=== PATIENT | female | born 1965 | race African-American/Black ===

== ENCOUNTER → 2023-08-06 | Emergency (ER) | payer OTHER ==
[~2023-08-06] MED LIST: AMLODIPINE 10 MG TAB ONE; NA CHLORIDE 0.9% 500 ML ONE; ONDANSETRON 4 MG/2 ML VIAL ONE; POTASSIUM 25 MEQ EFFERV TAB ONE
[2023-08-06 09:36] LABS: Hematocrit 39.3 % (36.0-45.0); Lymphocytes % 37.7 % (15.3-44.8); MCV 80.9 fL (80-100); MPV 8.1 fL (7.6-11.3); Platelets 227 thou/uL (152-406); RBC Red Blood Cell Count 4.86 M/uL (3.86-4.86)
[2023-08-06 09:57] LABS: Albumin 3.3 g/dL (3.4-5.0); Bilirubin Total 0.4 mg/dL (0.2-1.0); Potassium 3.3 mEq/L (3.5-5.1); Protein, Total 7.5 g/dL (6.4-8.2); Troponin High Sensitivity 6.5 pg/mL (<58.9)
--- NOTE | 2023-08-06 10:29 | RAD REPORT ---
EXAM DESCRIPTION: Rick Single View08/06/2023 9:48 am CLINICAL HISTORY: Cough COMPARISON: none FINDINGS: The lungs appear clear of acute infiltrate. The heart is normal size IMPRESSION: No acute abnormalities displayed
[2023-08-06 10:36] LABS: Specific Gravity 1.012 (1.005-1.030); Urine Bacteria None Seen /HPF (<20); Urine Bilirubin NEGATIVE (Negative); Urine Blood Negative (Negative); Urine Clarity Clear (Clear); Urine Color Colorless (Yellow); Urine Glucose NEGATIVE (Negative); Urine Protein NEGATIVE (Negative); Urine RBC <5 /HPF (None Seen); Urine Urobilinogen Normal (Normal)
--- NOTE | 2023-08-06 11:57 | ER ---
Nurse's Notes [facility] Name: Vanessa Reece Age: 58 yrs Sex: Female : 1965 Arrival Date: 08/06/2023 Time: 08:44 Bed 5 Private MD: Diagnosis: Dizziness and giddiness;Essential (primary) hypertension;Hypokalemia Presentation: 08/06 08:56 Chief complaint: Patient states: Nausea and not feeling well started today. BP at work ll1 was 190/110's so she came to get checked. No LEDEZMA or CP. Coronavirus screen: Client denies travel out of the [place] in the last 14 days. At this time, the client does not indicate any symptoms associated with coronavirus-19. Ebola Screen: Patient denies travel to an Ebola-affected area in the 21 days before illness onset. Initial Sepsis Screen: Does the patient meet any 2 criteria? No. Patient's initial sepsis screen is negative. Does the patient have a suspected source of infection? No. Patient's initial sepsis screen is negative. Risk Assessment: Do you want to hurt yourself or someone else? Patient reports no desire to harm self or others. Onset of symptoms was August 06, 2023. 08:56 Method Of Arrival: Ambulatory ll1 08:56 Acuity: LISANDRO 2 ll1 Historical: - Allergies: 08:55 Aspirin; ll1 - PMHx: 08:58 Hypertensive disorder; no meds now; TIA; ll1 - Immunization history:: Adult Immunizations up to date. - Social history:: Smoking status: Patient denies any tobacco usage or history of. Screenin:44 [facility] ED Fall Risk Assessment (Adult) Score/Fall Risk Level 0 - 2 = Low Risk nj1 Oriented to surroundings, Maintained a safe environment, Hourly rounding (assess needs \T\ fall precautionary measures) done. Abuse screen: Denies threats or abuse. Denies injuries from another. Nutritional screening: No deficits noted. Tuberculosis screening: No symptoms or risk factors identified. Assessment: 09:25 General: Appears in no apparent distress. comfortable, Behavior is calm, cooperative, nj1 appropriate for age. Pain: Denies pain. Neuro: Level of Consciousness is awake, alert, obeys commands, Oriented to person, place, time, situation. 09:25 Cardiovascular: Denies chest pain, Patient's skin is warm and dry. Respiratory: Airway nj1 is patent Respiratory effort is even, unlabored. GI: Reports nausea. 10:21 Reassessment: Patient appears in no apparent distress at this time. Patient and/or nj1 family updated on plan of care and expected duration. Pain level reassessed. Patient is alert, oriented x 3, equal unlabored respirations, skin warm/dry/pink. 12:18 Reassessment: Patient appears in no apparent distress at this time. Patient and/or nj1 family updated on plan of care and expected duration. Pain level reassessed. Patient is alert, oriented x 3, equal unlabored respirations, skin warm/dry/pink. GI: Patient currently denies nausea. Vital Signs: 08:56 BP 196 / 108; Pulse 68; Resp 16; Temp 97.7; Pulse Ox 98% on R/A; Weight 99.79 kg; ll1 Height 5 ft. 9 in. ; Pain 0/10; 09:30 BP 184 / 105; Pulse 64; Resp 18; Pulse Ox 98% on R/A; Pain 0/10; nj1 10:19 BP 168 / 98; Pulse 62; Resp 18; Pulse Ox 98% ; Pain 0/10; nj1 12:17 BP 158 / 95; Pulse 67; Resp 17; Pulse Ox 97% on R/A; nj1 08:56 Body Mass Index 32.49 (99.79 kg, 175.26 cm) ll1 08:56 Pain Scale: Adult ll1 09:30 Pain Scale: Adult nj1 10:19 Pain Scale: Adult nj1 ED Course: 08:50 Patient arrived in ED. gm2 08:52 Arm band placed on. ll1 08:58 Triage completed. ll1 08:58 Oskar Quezada MD is Attending Physician. maurice 09:04 Tasneem Cantor RN is Primary Nurse. nj1 09:25 Inserted saline lock: 22 gauge in right antecubital area, using aseptic technique. nj1 Blood collected. 09:44 Patient has correct armband on for positive identification. Bed in low position. Call nj1 light in reach. Provided Education on: call light, fall precautions. 09:50 Chest Single View In Process Unspecified. EDMS 11:56 Gus Novoa MD is Referral Physician. maurice 12:29 No provider procedures requiring assistance completed. IV discontinued, intact, nj1 bleeding controlled. Administered Medications: 09:25 Drug: NS 0.9% IV 500 ml IV at bolus once Route: IV; Rate: bolus; Site: right nj1 antecubital; 10:00 Follow up: Response: No adverse reaction; IV Status: Completed infusion; IV Intake: nj1 500ml 09:31 Drug: Ondansetron IVP 4 mg IVP once; over 2 minutes Route: IVP; Site: right antecubital;[facility] 10:00 Follow up: Response: No adverse reaction; Nausea is decreased nj1 12:11 Drug: Potassium PO Effervescent Tablet 25 mEq PO once; dissolve in 4 ounces of water or [facility] juice Route: PO; 12:11 Drug: Norvasc PO 10 mg PO once Route: PO; az1 Medication: 12:30 VIS not applicable for this client. nj1 Intake: 10:00 IV: 500ml; Total: 500ml. [facility] Outcome: 11:57 Discharge ordered by . maurice 12:29 Discharged to home ambulatory, [facility] 12:29 Condition: stable 12:29 Discharge instructions given to patient, Instructed on discharge instructions, follow up and referral plans. medication usage, Demonstrated understanding of instructions, follow-up care, medications, Prescriptions given X 3, 12:30 Patient left the ED. [facility] Signatures: Dispatcher [employer] EDMS Oskar Quezada MD MD cha Lewis, Lynsay, RN RN 1 Tasneem Cantor RN RN gen1 Ana Parikh gm2 Corrections: (The following items were deleted from the chart) 08:58 08:55 PMHx: Hypertensive disorder; no meds; ll1 1 09:43 09:31 NS 0.9% IV 500 ml IV at bolus in right antecubital nj nj
--- NOTE | 2023-08-06 11:57 | EDPHYS ---
Physician Documentation [facility] Name: Vanessa Reece Age: 58 yrs Sex: Female : 1965 Arrival Date: 08/06/2023 Time: 08:44 Bed 5 Private MD: ED Physician Oskar Quezada HPI: 08/06 11:53 This 58 yrs old Black Female presents to ER via Ambulatory with complaints of High maurice Blood Pressure. 11:53 The patient has elevated blood pressure and discovered this at home. Onset: The maurice symptoms/episode began/occurred just prior to arrival. Modifying factors: The symptoms are aggravated by activity, The symptoms are alleviated by remaining still. Associated signs and symptoms: Pertinent positives: dizziness, lightheadedness. Severity of symptoms: At its worst the blood pressure was moderate, in the emergency department the blood pressure is improved, mildly. The patient has experienced similar episodes in the past, several times. Historical: - Allergies: 08:55 Aspirin; ll1 - PMHx: 08:58 Hypertensive disorder; no meds now; TIA; ll1 - Immunization history:: Adult Immunizations up to date. - Social history:: Smoking status: Patient denies any tobacco usage or history of. ROS: 11:54 Constitutional: Negative for fever, chills, and weight loss, Eyes: Negative for injury, maurice pain, redness, and discharge, ENT: Negative for injury, pain, and discharge, Neck: Negative for injury, pain, and swelling, Cardiovascular: Negative for chest pain, palpitations, and edema, Respiratory: Negative for shortness of breath, cough, wheezing, and pleuritic chest pain, Abdomen/GI: Negative for abdominal pain, nausea, vomiting, diarrhea, and constipation, Back: Negative for injury and pain, : Negative for injury, bleeding, discharge, and swelling, MS/Extremity: Negative for injury and deformity, Skin: Negative for injury, rash, and discoloration, Psych: Negative for depression, anxiety, suicide ideation, homicidal ideation, and hallucinations, Allergy/Immunology: Negative for hives, rash, and allergies, Endocrine: Negative for neck swelling, polydipsia, polyuria, polyphagia, and marked weight changes, Hematologic/Lymphatic: Negative for swollen nodes, abnormal bleeding, and unusual bruising, 11:54 Neuro: Positive for dizziness, weakness, Exam: 11:54 Constitutional: This is a well developed, well nourished patient who is awake, alert, maurice and in no acute distress. Head/Face: Normocephalic, atraumatic. Eyes: Pupils equal round and reactive to light, extra-ocular motions intact. Lids and lashes normal. Conjunctiva and sclera are non-icteric and not injected. Cornea within normal limits. Periorbital areas with no swelling, redness, or edema. ENT: Nares patent. No nasal discharge, no septal abnormalities noted. Tympanic membranes are normal and external auditory canals are clear. Oropharynx with no redness, swelling, or masses, exudates, or evidence of obstruction, uvula midline. Mucous membranes moist. Neck: Trachea midline, no thyromegaly or masses palpated, and no cervical lymphadenopathy. Supple, full range of motion without nuchal rigidity, or vertebral point tenderness. No Meningismus. Chest/axilla: Normal chest wall appearance and motion. Nontender with no deformity. No lesions are appreciated. Cardiovascular: Regular rate and rhythm with a normal S1 and S2. No gallops, murmurs, or rubs. Normal PMI, no JVD. No pulse deficits. Respiratory: Lungs have equal breath sounds bilaterally, clear to auscultation and percussion. No rales, rhonchi or wheezes noted. No increased work of breathing, no retractions or nasal flaring. Abdomen/GI: Soft, non-tender, with normal bowel sounds. No distension or tympany. No guarding or rebound. No evidence of tenderness throughout. Back: No spinal tenderness. No costovertebral tenderness. Full range of motion. Female : Normal external genitalia. Skin: Warm, dry with normal turgor. Normal color with no rashes, no lesions, and no evidence of cellulitis. MS/ Extremity: Pulses equal, no cyanosis. Neurovascular intact. Full, normal range of motion. Neuro: Awake and alert, GCS 15, oriented to person, place, time, and situation. Cranial nerves II-XII grossly intact. Motor strength 5/5 in all extremities. Sensory grossly intact. Cerebellar exam normal. Normal gait. Psych: Awake, alert, with orientation to person, place and time. Behavior, mood, and affect are within normal limits. 11:54 ECG was reviewed by the Attending Physician. 11:54 Musculoskeletal/extremity: DVT Exam: No signs of deep vein thrombosis. no pain, no swelling, no tenderness, negative Homans' sign noted on exam, no appreciated bluish discoloration, no erythema, no increased warmth, Vital Signs: 08:56 BP 196 / 108; Pulse 68; Resp 16; Temp 97.7; Pulse Ox 98% on R/A; Weight 99.79 kg; ll1 Height 5 ft. 9 in. ; Pain 0/10; 09:30 BP 184 / 105; Pulse 64; Resp 18; Pulse Ox 98% on R/A; Pain 0/10; nj1 10:19 BP 168 / 98; Pulse 62; Resp 18; Pulse Ox 98% ; Pain 0/10; nj1 12:17 BP 158 / 95; Pulse 67; Resp 17; Pulse Ox 97% on R/A; nj1 08:56 Body Mass Index 32.49 (99.79 kg, 175.26 cm) ll1 08:56 Pain Scale: Adult ll1 09:30 Pain Scale: Adult nj1 10:19 Pain Scale: Adult nj1 MDM: 08:59 Patient medically screened. maurice 11:57 Differential diagnosis: hypertensive crisis, Malignant HTN, CVA. Data reviewed: vital maurice signs, nurses notes, lab test result(s), EKG, radiologic studies, plain films. Consideration of Admission/Observation Escalation of care including admission/observation considered. I considered the following discharge prescriptions or medication management in the emergency department Medications were administered in the Emergency Department. See MAR. Independent interpretation of the following test(s) in the Emergency Department EKG: See my EKG interpretation above. Test considered but Not performed: CT: NO CT BRAIN. Historians other than the Patient: Spouse/Significant Other: WELL INFORMED. Care significantly affected by the following chronic conditions: Hypertension, Obesity. Counseling: I had a detailed discussion with the patient and/or guardian regarding the historical points, exam findings, and any diagnostic results supporting the discharge/admit diagnosis, lab results, radiology results. 08/06 08:59 Order name: CBC with Diff; Complete Time: 11:47 [facility] 08/06 08:59 Order name: Comprehensive Metabolic Panel; Complete Time: 11:47 [facility] 08/06 08:59 Order name: Troponin HS; Complete Time: 11:47 [facility] 08/06 08:59 Order name: Urinalysis W/Microscopic; Complete Time: 11:47 [facility] 08/06 08:59 Order name: BNP; Complete Time: 11:47 maurice 08/06 09:15 Order name: Chest Single View; Complete Time: 11:47 EDMS 08/06 08:59 Order name: EKG; Complete Time: 09:00 maurice 08/06 08:59 Order name: EKG - Nurse/Tech; Complete Time: 09:41 maurice 08/06 12:04 Order name: PO challenge: JUICE; Complete Time: 12:17 maurice EC:54 Rate is 64 beats/min. Rhythm is regular. QRS [place] is Normal. VA interval is normal. QRS maurice interval is normal. QT interval is normal. No Q waves. T waves are Normal. T waves are Inverted in leads II, aVF, V1, V2, V3, V4, V5. No ST changes noted. Clinical impression: NSR w/ Non-specific ST/T Changes and No evidence of ischemia. Interpreted by me. Reviewed by me. Administered Medications: 09:25 Drug: NS 0.9% IV 500 ml IV at bolus once Route: IV; Rate: bolus; Site: right [facility] antecubital; 10:00 Follow up: Response: No adverse reaction; IV Status: Completed infusion; IV Intake: nj1 500ml 09:31 Drug: Ondansetron IVP 4 mg IVP once; over 2 minutes Route: IVP; Site: right antecubital;[facility] 10:00 Follow up: Response: No adverse reaction; Nausea is decreased [facility] 12:11 Drug: Potassium PO Effervescent Tablet 25 mEq PO once; dissolve in 4 ounces of water or nj1 juice Route: PO; 12:11 Drug: Norvasc PO 10 mg PO once Route: PO; nj1 Disposition Summary: 08/06/23 11:57 Discharge Ordered Notes: Location: Home maurice Problem: new maurice Symptoms: have improved maurice Condition: Stable maurice Diagnosis - Dizziness and giddiness maurice - Essential (primary) hypertension maurice - Hypokalemia maurice Followup: maurice - With: Private Physician - When: 2 - 3 days - Reason: Recheck today's complaints, Continuance of care, Re-evaluation by your physician Followup: maurice - With: Gus Novoa MD - When: 2 - 3 days - Reason: Recheck today's complaints, Re-evaluation by your physician Discharge Instructions: - Discharge Summary Sheet maurice - Potassium Content of Foods maurice - Dizziness maurice - Hypertension, Adult maurice - Hypertension, Adult, [id number] maurice - How to Take Your Blood Pressure, Cohy-da-Tobk maurice - Hypokalemia maurice - Dizziness, [id number] maurice - Managing Your Hypertension maurice Forms: - Medication Reconciliation Form maurice - Thank You Letter maurice - Antibiotic Education maurice - Prescription Opioid Use maurice - Patient Portal Instructions maurice - Leadership Thank You Letter maurice - Work release form nj1 Prescriptions: - Norvasc 5 mg Oral tablet - take 1 tablet ORAL route once daily; 30 tablet; Refills: 0, Product Selection maurice Permitted - Potassium Chloride 20 meq Oral Packet - take 1 packet ORAL route once daily 1 packet in 6 (six) ounces of water or maurice juice; Take after meal; 30 packet; Refills: 0, Product Selection Permitted - Hydrochlorothiazide 12.5 mg Oral Tablet - take 1 tablet ORAL route once daily; 30 tablet; Refills: 0, Product Selection maurice Permitted Signatures: Dispatcher [employer] Oskar Abraham MD MD cha Lewis, Lynsay, RN RN ll1 Tasneem Cantor RN RN nj1 Corrections: (The following items were deleted from the chart) 08:58 08:55 PMHx: Hypertensive disorder; no meds; 1 [facility] 09:15 09:00 Chest Pa And Lat (2 Views)+[email or web address] ordered. EDHI EDMS
[2023-08-06 12:59] VITALS: BP 158/95; TEMP 97.7; O2SAT 97
--- NOTE | 2023-08-07 16:30 | EKG ---
Test Date: 2023-08-06 Test Time: 09:35:16 Direct Support Staff Member: VIMAL MEASUREMENT RESULTS: Intervals: Rate: 64 NM: 166 QRSD: 88 QT: 442 QTc: 455 [place]: P: 49 NM: 166 QRS: 34 T: -25 INTERPRETIVE STATEMENTS: Normal sinus rhythm Nonspecific T wave abnormality Abnormal ECG No previous ECG available for comparison Electronically Signed On 08-07-23 16:26:21 EMBOSSING TOOLSETTER by Gus Novoa
== END ==
LOC: ER 08:44
DX: I10 Essential (primary) hypertension (principal); E87.6 Hypokalemia; Z88.6 Allergy status to analgesic agent
CPT/HCPCS: 96361; 93005; 85025; 81001; 36415; 84484; 80053; 83880; 71045; 96374; 99284; J2405; J7040

== ENCOUNTER 2023-12-10 14:16 | Emergency (ER) | payer OTHER ==
--- NOTE | 2023-12-10 15:24 | EDPHYS ---
Physician Documentation [facility] Name: Vanessa Reece Age: 58 yrs Sex: Female : 1965 Arrival Date: 12/10/2023 Time: 14:16 Bed DX3 Private MD: ED Physician Asim Kang HPI: 12/09 15:20 This 58 yrs old Black Female presents to ER via Ambulatory with complaints of Leg Pain. rn 15:20 The patient presents with pain. The complaints affect the left knee. rn 15:20 Onset: The symptoms/episode began/occurred 3 day(s) ago. Modifying factors: The rn symptoms are alleviated by nothing. the symptoms are aggravated by movement. Severity of symptoms: At their worst the symptoms were mild, in the emergency department the symptoms are unchanged. The patient has not experienced similar symptoms in the past. 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 Is able to ambulate and is still going to work. Has tried elevation and rest as best as she can with still hurts. No fever or chills. No direct trauma. No open wounds.. Historical: - Allergies: 14:42 Aspirin; db - PMHx: 14:42 Hypertensive disorder; no meds now; TIA; db - Immunization history:: Adult Immunizations unknown. - Infectious Disease History:: Denies. - Social history:: Smoking status: Patient denies any tobacco usage or history of. - Family history:: not pertinent. - Hospitalizations: : No recent hospitalization is reported. ROS: 15:20 Constitutional: Negative for fever, chills, and weight loss, MS/Extremity: Positive for rn left leg pain Exam: 15:20 Constitutional: This is a well developed, well nourished patient who is awake, alert, rn and in no acute distress. Ambulatory to triage without difficulty or assistance MS/ Extremity: Pulses equal, no cyanosis. Neurovascular intact. Ambulatory. Mild left knee effusion. No redness or erythema or warmth of the knee. Vital Signs: 14:40 BP 170 / 100; Pulse 63; Resp 16; Temp 99; Pulse Ox 96% ; Weight 100.7 kg; Height 5 ft. db 9 in. ; 14:40 Body Mass Index 32.78 (100.70 kg, 175.26 cm) db MDM: 14:22 Patient medically screened. rn 15:20 Differential diagnosis: Knee effusion, sprain, strain. Data reviewed: vital signs, rn nurses notes, and as a result, I will discharge patient. Counseling: I had a detailed discussion with the patient and/or guardian regarding the historical points, exam findings, and any diagnostic results supporting the discharge/admit diagnosis, the need for outpatient follow up, to return to the emergency department if symptoms worsen or persist or if there are any questions or concerns that arise at home. Special discussion: I discussed with the patient/guardian in detail that at this point there is no indication for admission to the hospital. It is understood, however, that if the symptoms persist or worsen the patient needs to return immediately for re-evaluation. Special discussion: Further emergent ED testing is not indicated at this point in time. I discussed with the patient/guardian in detail the need to arrange with the PCP or specialist further outpatient testing, MRI. ED course: No indication for emergent x-ray at this time. Could benefit from MRI as an outpatient has most likely internal derangement of the knee. Patient denies any focal injury or direct trauma. Will place in knee immobilizer and recommend rest with elevation and pain medication.. 12/09 15:02 Order name: Knee Immobilizer; Complete Time: 15:35 rn Administered Medications: No medications were administered Disposition Summary: 12/10/23 15:24 Discharge Ordered Notes: Location: Home rn Problem: new rn Symptoms: are unchanged rn Condition: Stable rn Diagnosis - Pain in left knee rn - Effusion, left knee rn Followup: rn - With: Private Physician - When: As needed - Reason: Recheck today's complaints, Re-evaluation by your physician Discharge Instructions: - Discharge Summary Sheet rn - Knee Effusion rn - How to Use a Knee Immobilizer rn - Acute Knee Pain, Adult rn Forms: - Work release form iw - Medication Reconciliation Form rn - Antibiotic international accounting manager - Prescription Opioid Use rn - Patient Portal Instructions rn - Leadership Thank You Letter rn Prescriptions: - Cyclobenzaprine 10 mg Oral tablet - take 1 tablet ORAL route every 12 hours As needed; 15 tablet; Refills: 0, rn Product Selection Permitted - Tramadol 50 mg Oral Tablet - take 1 tablet ORAL route every 8 hours as needed; 12 tablet; Refills: 0, rn Product Selection Permitted Signatures: Asim Kang MD MD rn Benton, Danielle, ANTONIO RN db
--- NOTE | 2023-12-10 15:24 | ER ---
Nurse's Notes [facility] Name: Vanessa Reece Age: 58 yrs Sex: Female : 1965 Arrival Date: 12/10/2023 Time: 14:16 Bed DX3 Private MD: Diagnosis: Pain in left knee;Effusion, left knee Presentation: 12/09 14:40 Chief complaint: Patient states: LEFT LEG PAIN STARTED HURTING AFTER MOVING ALL DAY. db STATES PAIN WITH AMBULATION AND IS STILL HURTING. DENIES RECENT INJURY. Coronavirus screen: Client denies travel out of the [place] in the last 14 days. At this time, the client does not indicate any symptoms associated with coronavirus-19. Ebola Screen: Patient negative for fever greater than or equal to 101.5 degrees Fahrenheit, and additional compatible Ebola Virus Disease symptoms Patient denies exposure to infectious person. Patient denies travel to an Ebola-affected area in the 21 days before illness onset. No symptoms or risks identified at this time. Initial Sepsis Screen: Does the patient meet any 2 criteria? No. Patient's initial sepsis screen is negative. Does the patient have a suspected source of infection? No. Patient's initial sepsis screen is negative. Risk Assessment: Do you want to hurt yourself or someone else? Patient reports no desire to harm self or others. Onset of symptoms was December 07, 2023. 14:40 Method Of Arrival: Ambulatory db 14:40 Acuity: LISANDRO 4 db Triage Assessment: 14:42 General: Appears in no apparent distress. comfortable, Behavior is calm, cooperative. db Pain: Complains of pain in left leg. Musculoskeletal: Circulation, motion, and sensation intact. Capillary refill < 3 seconds, Range of motion: limited in left knee. Historical: - Allergies: 14:42 Aspirin; db - PMHx: 14:42 Hypertensive disorder; no meds now; TIA; db - Immunization history:: Adult Immunizations unknown. - Infectious Disease History:: Denies. - Social history:: Smoking status: Patient denies any tobacco usage or history of. - Family history:: not pertinent. - Hospitalizations: : No recent hospitalization is reported. Screenin:52 [facility] ED Fall Risk Assessment (Adult) Score/Fall Risk Level 0 - 2 = Low Risk. Abuse iw screen: Denies threats or abuse. Denies injuries from another. Nutritional screening: No deficits noted. Tuberculosis screening: No symptoms or risk factors identified. Assessment: 14:45 Musculoskeletal: Swelling present in left knee. db Vital Signs: 14:40 BP 170 / 100; Pulse 63; Resp 16; Temp 99; Pulse Ox 96% ; Weight 100.7 kg; Height 5 ft. db 9 in. ; 14:40 Body Mass Index 32.78 (100.70 kg, 175.26 cm) db ED Course: 14:18 Patient arrived in ED. mg5 14:22 Asim Kang MD is Attending Physician. rn 14:42 Triage completed. db 14:42 Arm band placed on Patient placed in waiting room. db 14:45 Patient has correct armband on for positive identification. Provided Education on: . iw 15:34 Dorothea Griffith, RN is Primary Nurse. iw 15:52 No provider procedures requiring assistance completed. Patient did not have IV access iw during this emergency room visit. Administered Medications: No medications were administered Medication: 14:45 VIS not applicable for this client. iw Outcome: 15:24 Discharge ordered by . rn 15:52 Discharged to home ambulatory, iw 15:52 Condition: good 15:52 Discharge instructions given to patient, Instructed on discharge instructions, follow up and referral plans. medication usage, Demonstrated understanding of instructions, follow-up care, medications, Prescriptions given X 2, 15:53 Patient left the ED. ld1 Signatures: Dorothea Griffith, ANTONIO ALVAREZ Asim Kang MD MD rn Sims, Lauren, RN RN ld1 Molly Barrera RN RN Elyssa Estrada mg5
[2023-12-10 16:37] VITALS: BP 170/100; TEMP 99; O2SAT 96
== END 2023-12-10 15:53 | disposition home or self-care (01) ==
LOC: ER 14:16
DX: M25.462 Effusion, left knee (principal)
CPT/HCPCS: 99283

== ENCOUNTER 2024-05-02 11:36 | Inpatient (IN) | payer OTHER ==
[2024-05-02] MEDS ORDERED: ONDANSETRON 4 MG/2 ML VIAL ONE (12:09)
[2024-05-02] MEDS ORDERED: MORPHINE 2 MG/ML SYR ONE (12:09)
[2024-05-02] MEDS ORDERED: FAMOTIDINE 20 MG/2 ML VIAL IV ONE (12:09)
[2024-05-02] MEDS ORDERED: NA CHLORIDE 0.9% 1,000 ML ONE (12:10)
[2024-05-02 12:15] LABS: Absolute Lymphocytes (CBC) 1.7 K/uL (0.7-4.9); Absolute Monocytes 0.2 K/uL (0.1-1.3); Absolute Neutrophil 5.5 K/uL (1.8-8.0); Basophils % 0.5 % (0-1.3); Eosinophils % 0.1 % (0-4.4); Hematocrit 42.7 % (36.0-45.0); Hemoglobin 13.7 g/dL (12.0-15.0); Lymphocytes % 22.3 % (15.3-44.8); MCH 26.4 pg (27.0-35.0); MCHC 32.1 g/dL (32.0-36.0); MCV 82.3 fL (80-100); MPV 8.5 fL (7.6-11.3); Monocytes % 2.8 % (3.3-12.3); Neutrophils % 74.3 % (41.7-73.7); Platelets 241 thou/uL (152-406); RBC Red Blood Cell Count 5.19 M/uL (3.86-4.86)
--- NOTE | 2024-05-02 12:15 | RAD REPORT ---
EXAMINATION: ONE VIEW CHEST XR CLINICAL INDICATION: Female, 58 years old.ABDOMINAL DISTENTION TECHNIQUE: 1 View, AP supine, X-ray of the chest was performed. [id number]. COMPARISON: 08/06/2023 FINDINGS: Lungs and pleura: Clear lungs. No effusion. Heart and mediastinum: Similar size and configuration Unremarkable mediastinal contours. Osseous structures: No acute abnormality. Tubes/lines: None Other: None. IMPRESSION: No acute intrathoracic abnormality.
[2024-05-02 12:17] LABS: PT Prothrombin Time 11.5 SECONDS (9.4-12.5); Protime INR 1.03
[2024-05-02 12:34] LABS: ALT/SGPT 21 U/L (13-56); AST/SGOT 14 U/L (15-37); Albumin 3.6 g/dL (3.4-5.0); Albumin/Globulin Ratio 0.8 (1.1-1.8); Alkaline Phosphatase 111 U/L (45-117); Anion Gap 9.6 mEq/L (5.0-15.0); BUN Blood Urea Nitrogen 16 mg/dL (7-18); Bicarbonate 25 mEq/L (21-32); Bilirubin Total 0.4 mg/dL (0.2-1.0); Globulin 4.8 g/dL (2.3-3.5); Glomerular Filtration Rate 56 ml/min (=/>90); Glucose Level 140 mg/dL (74-106); Lipase 21 U/L (13-75); Magnesium 1.8 mg/dL (1.6-2.4); NT PRO-BNP 85 pg/mL (<125); Potassium 3.6 mEq/L (3.5-5.1); Protein, Total 8.4 g/dL (6.4-8.2); Sodium Level 136 mEq/L (136-145); Troponin High Sensitivity 6.3 pg/mL (<58.9)
[2024-05-02 12:35] LABS: Bilirubin Direct < 0.2 mg/dL (0-0.2); Bilirubin Indirect, Calculated 0.2 mg/dL (0.2-0.8)
--- NOTE | 2024-05-02 13:45 | RAD REPORT ---
EXAMINATION: CT ABDOMEN AND PELVIS WITH CONTRAST CLINICAL INDICATION: Female, 58 years old.ABD PAIN TECHNIQUE: CT abdomen and pelvis was performed, after the administration of IV contrast, as [facility]. Axial, sagittal and coronal reconstructions were obtained. One or more of the following dose reduction techniques were used: Automated exposure control, adjustment of the mA and/o r kV according to patient size, and/or iterative reconstruction. Unless otherwise specified, incidental findings do not require dedicated imaging follow-up. [id number]. COMPARISON: No prior exam. FINDINGS: LOWER CHEST: The visualized lung bases are clear. LIVER: Normal in size and contour. No focal lesion. GALLBLADDER/BILE DUCT: Question mild pericholecystic edema.? PANCREAS: No significant abnormality. SPLEEN: Normal size. No focal lesion. ADRENALS: Normal; no mass. KIDNEYS AND URETERS: Normal size and contour. No hydronephrosis. GASTROINTESTINAL TRACT: Stomach is non-dilated. Small bowel has normal course and caliber. No colonic wall thickening or pericolonic inflammatory changes. Normal appendix. PERITONEUM: No ascites. LYMPH NODES: No lymphadenopathy. ABDOMINAL AORTA AND OTHER VESSELS: Normal caliber aorta and IVC. URINARY BLADDER: Normal contour. REPRODUCTIVE ORGANS: Multiple uterine fibroids. MUSCULOSKELETAL: No acute or suspicious osseous abnormality. Moderate disc height loss at L5-S1. ADDITIONAL FINDINGS: None. IMPRESSION: Distended gallbladder with trace pericholecystic stranding. This could reflect acute cholecystitis in the appropriate clinical setting. Consider right upper quadrant ultrasound.
[2024-05-02] MEDS: PIPER TAZO 3.375 GM in NA CHLORIDE 0.9% 100 ML IV SCH (14:00)
--- NOTE | 2024-05-02 14:13 | ER ---
Nurse's Notes [facility] Name: Vanessa Reece Age: 58 yrs Sex: Female : 1965 Arrival Date: 05/02/2024 Time: 11:36 Bed 19 Private MD: Diagnosis: Cholecystitis, unspecified;Acute cholecystitis;Other cholelithiasis with obstruction;Epigastric abdominal tenderness;Vomiting;Essential (primary) hypertension Presentation: 05/02 11:51 Chief complaint: Patient states: Severe abdominal pain since 3 AM. +N/V/D. Coronavirus ll1 screen: Client denies travel out of the [place] in the last 14 days. At this time, the client does not indicate any symptoms associated with coronavirus-19. Ebola Screen: Patient denies travel to an Ebola-affected area in the 21 days before illness onset. Initial Sepsis Screen: Does the patient meet any 2 criteria? No. Patient's initial sepsis screen is negative. Does the patient have a suspected source of infection? No. Patient's initial sepsis screen is negative. Risk Assessment: Do you want to hurt yourself or someone else? Patient reports no desire to harm self or others. Onset of symptoms was May 02, 2024. 11:51 Method Of Arrival: Wheelchair ll1 11:51 Acuity: LISANDRO 3 ll1 Triage Assessment: 11:51 General: Appears uncomfortable, Behavior is calm, cooperative, appropriate for age. ll1 Pain: Complains of pain in epigastric area Quality of pain is described as aching, crampy. GI: Reports upper abdominal pain, cramping, diarrhea, nausea, vomiting. Historical: - Allergies: 11:51 Aspirin; ll1 - PMHx: 11:51 Hypertensive disorder; no meds now; TIA; ll1 - Immunization history:: Adult Immunizations up to date. - Infectious Disease History:: Denies. - Family history:: not pertinent. - Social history:: Smoking status: unknown. Screenin:00 [facility] ED Fall Risk Assessment (Adult) History of falling in the last 3 months, tm6 including since admission No falls in past 3 months (0 pts) Confusion or Disorientation No (0 pts) Intoxicated or Sedated No (0 pts) Impaired Gait No (0 pts) Mobility Assist Device Used No (0 pt) Altered Elimination No (0 pt) Score/Fall Risk Level 0 - 2 = Low Risk Oriented to surroundings, Maintained a safe environment, Educated pt \T\ family on fall prevention, incl call for assistance when getting out of bed. Abuse screen: Denies threats or abuse. Denies injuries from another. Nutritional screening: No deficits noted. Tuberculosis screening: No symptoms or risk factors identified. Assessment: 12:00 General: Appears uncomfortable, Behavior is cooperative. Pain: Complains of pain in tm6 abdomen Pain began 0300. Neuro: Level of Consciousness is awake, alert, obeys commands, Oriented to person, place, time, situation. Cardiovascular: Patient's skin is warm and dry. Respiratory: Airway is patent Respiratory effort is even, unlabored, Respiratory pattern is regular, symmetrical. GI: Bowel sounds present X 4 quads. Abd is soft Reports lower abdominal pain, upper abdominal pain, diarrhea, nausea, vomiting, since 0300. : No signs and/or symptoms were reported regarding the genitourinary system. EENT: No signs and/or symptoms were reported regarding the EENT system. Derm: No signs and/or symptoms reported regarding the dermatologic system. Musculoskeletal: No signs and/or symptoms reported regarding the musculoskeletal system. 14:07 Reassessment: Patient and/or family updated on plan of care and expected duration. Pain tm6 level reassessed. Patient is alert, oriented x 3, equal unlabored respirations, skin warm/dry/pink. Patient states symptoms have not improved. 16:54 Reassessment: Patient and/or family updated on plan of care and expected duration. Pain tm6 level reassessed. Patient is alert, oriented x 3, equal unlabored respirations, skin warm/dry/pink. Vital Signs: 11:51 BP 138 / 97; Pulse 83; Resp 18; Temp 98.9; Pulse Ox 100% ; Weight 100.7 kg; Height 5 ll1 ft. 8 in. ; Pain 10/10; 14:03 BP 190 / 116; Pulse 75; Resp 15; MAP 136 mmHg; Pain 5/10; tm6 15:12 BP 177 / 107; MAP 124 mmHg; tm6 11:51 Body Mass Index 33.75 (100.70 kg, 172.72 cm) ll1 11:51 Pain Scale: Adult ll1 14:03 Pain Scale: Adult tm6 ED Course: 11:39 Patient arrived in ED. im 11:41 Oskar Quezada MD is Attending Physician. maurice 11:52 Triage completed. ll1 11:52 Arm band placed on. ll1 11:56 Marek Peguero, RN is Primary Nurse. tm6 11:57 Patient placed in an exam room, on a stretcher. ll1 12:00 Patient has correct armband on for positive identification. Bed in low position. Call tm6 light in reach. Side rails up X 1. Provided Education on: use of call peña. Client placed on continuous cardiac and pulse oximetry monitoring. NIBP monitoring applied. awake overnight monitor on. Pulse ox on. NIBP on. Door closed. Noise minimized. Lights dimmed. Warm blanket given. Pillow given. 12:05 Basic Metabolic Panel Sent. tm6 12:05 CBC with Diff Sent. tm6 12:05 LFT's Sent. tm6 12:05 Magnesium Sent. tm6 12:05 NT PRO-BNP Sent. tm6 12:05 PT-INR Sent. tm6 12:05 Troponin HS Sent. tm6 12:06 Inserted saline lock: 20 gauge in right antecubital area, using aseptic technique. tm6 Blood collected. Flushed with 10 mL NS. 12:11 XRAY Chest (1 view) In Process Unspecified. EDMS 12:25 EKG done, by ED staff, reviewed by Oskar Quezada MD. tm6 13:24 CT Abd/Pelvis - IV Contrast Only In Process Unspecified. EDMS 14:08 Urinalysis w/ reflexes Sent. tm6 14:08 Urine Culture Sent. tm6 14:10 US Abdomen Limited In Process Unspecified. EDMS 14:11 Eric Turner MD is Hospitalizing Provider. maurice 15:28 Afsaneh Peña FNP [facility] 12 16:54 No provider procedures requiring assistance completed. Patient admitted, IV remains in tm6 place. Administered Medications: 12:16 Drug: NS 0.9% IV 1000 ml IV at 1000 ml once; to be given as a bolus over 60 minutes tm6 Route: IV; Rate: 1000 ml; Site: right antecubital; 14:07 Follow up: Response: No adverse reaction; IV Status: Completed infusion; IV Intake: tm6 1000ml 12:16 Drug: Ondansetron IVP 4 mg IVP once; over 2 minutes Route: IVP; Site: right antecubital;tm6 14:07 Follow up: Response: No adverse reaction tm6 12:16 Drug: Famotidine IVP 20 mg IVP once; dilute with 10 mL 0.9% NaCl; give over 2 minutes tm6 Route: IVP; Site: right antecubital; 14:07 Follow up: Response: No adverse reaction tm6 12:16 Drug: morphine IVP or IV 2 mg IVP once over 4 mins Route: IVP; Infused Over: 4 mins; tm6 Site: right antecubital; 14:07 Follow up: Response: No adverse reaction tm6 14:07 Not Given (Patient Refused): morphineor iv 2 mg IVP once over 4 mins tm6 14:13 Not Given (Patient Refused): fentanyl (pf)25 mcg IVP once tm6 14:40 Drug: Piperacillin-Tazobactam IVPB 3.375 grams IVPB once over 60 mins; (mix in NS 100 tm6 mL) Route: IVPB; Infused Over: 60 mins; Site: right antecubital; 15:12 Follow up: Response: No adverse reaction; IV Status: Completed infusion; IV Intake: tm6 100ml 14:40 Drug: Promethazine IVP 12.5 mg IVP once Route: IVP; Site: right antecubital; tm6 15:12 Follow up: Response: No adverse reaction tm6 14:46 Drug: traMADol PO 50 mg PO once Route: PO; tm6 15:12 Follow up: Response: No adverse reaction tm6 Medication: 12:00 VIS not applicable for this client. tm6 Intake: 14:07 IV: 1000ml; Total: 1000ml. tm6 15:12 IV: 100ml; Total: 1100ml. tm6 Outcome: 14:12 Decision to Hospitalize by Provider. maurice 16:54 Admitted to Med/surg accompanied by tech, via wheelchair, room 223, with chart, tm6 16:54 Condition: stable 16:54 Instructed on the need for admit, 16:54 Patient left the ED. tm6 Signatures: Dispatcher [employer] EDOskar Terrell MD MD cha Lewis, Lynsay, RN RN ll1 Yoselin Rangel Christy, [employer] DE[employer] DEAN 12 Marielena, Tawney, RN RN tm6
--- NOTE | 2024-05-02 14:13 | EDPHYS ---
Physician Documentation [facility] Name: Vanessa Reece Age: 58 yrs Sex: Female : 1965 Arrival Date: 05/02/2024 Time: 11:36 Bed 19 Private MD: YUMIKO Physician Oskar Quezada HPI: 05/02 14:03 This 58 yrs old Black Female presents to ER via Wheelchair with complaints of Abdominal maurice Pain, Nausea/Vomiting. 14:03 The patient presents to the emergency department with nausea, vomiting, abdominal pain, maurice of the epigastric area and right upper quadrant. Onset: The symptoms/episode began/occurred 1 day(s) ago. Possible causes: unknown, bad food exposure, flare up of bowel problem. The symptoms are aggravated by nothing. The symptoms are alleviated by nothing. Associated signs and symptoms: The patient has no apparent associated signs or symptoms. Severity of symptoms: At their worst the symptoms were moderate in the emergency department the symptoms are unchanged. The patient has experienced similar episodes in the past, a few times. ruq pain. Historical: - Allergies: 11:51 Aspirin; ll1 - PMHx: 11:51 Hypertensive disorder; no meds now; TIA; ll1 - Immunization history:: Adult Immunizations up to date. - Infectious Disease History:: Denies. - Family history:: not pertinent. - Social history:: Smoking status: unknown. ROS: 14:03 Constitutional: Negative for fever, chills, and weight loss, Eyes: Negative for injury, maurice pain, redness, and discharge, ENT: Negative for injury, pain, and discharge, Neck: Negative for injury, pain, and swelling, Cardiovascular: Negative for chest pain, palpitations, and edema, Respiratory: Negative for shortness of breath, cough, wheezing, and pleuritic chest pain, Back: Negative for injury and pain, : Negative for injury, bleeding, discharge, and swelling, MS/Extremity: Negative for injury and deformity, Skin: Negative for injury, rash, and discoloration, Neuro: Negative for headache, weakness, numbness, tingling, and seizure, Psych: Negative for depression, anxiety, suicide ideation, homicidal ideation, and hallucinations, Allergy/Immunology: Negative for hives, rash, and allergies, Endocrine: Negative for neck swelling, polydipsia, polyuria, polyphagia, and marked weight changes, Hematologic/Lymphatic: Negative for swollen nodes, abnormal bleeding, and unusual bruising, 14:03 Abdomen/GI: Positive for abdominal pain, nausea and vomiting, of the right upper quadrant, Exam: 14:03 Constitutional: This is a well developed, well nourished patient who is awake, alert, maurice and in no acute distress. Head/Face: Normocephalic, atraumatic. Eyes: Pupils equal round and reactive to light, extra-ocular motions intact. Lids and lashes normal. Conjunctiva and sclera are non-icteric and not injected. Cornea within normal limits. Periorbital areas with no swelling, redness, or edema. ENT: Nares patent. No nasal discharge, no septal abnormalities noted. Tympanic membranes are normal and external auditory canals are clear. Oropharynx with no redness, swelling, or masses, exudates, or evidence of obstruction, uvula midline. Mucous membranes moist. Neck: Trachea midline, no thyromegaly or masses palpated, and no cervical lymphadenopathy. Supple, full range of motion without nuchal rigidity, or vertebral point tenderness. No Meningismus. Chest/axilla: Normal chest wall appearance and motion. Nontender with no deformity. No lesions are appreciated. Cardiovascular: Regular rate and rhythm with a normal S1 and S2. No gallops, murmurs, or rubs. Normal PMI, no JVD. No pulse deficits. Respiratory: Lungs have equal breath sounds bilaterally, clear to auscultation and percussion. No rales, rhonchi or wheezes noted. No increased work of breathing, no retractions or nasal flaring. Back: No spinal tenderness. No costovertebral tenderness. Full range of motion. Female : Normal external genitalia. Skin: Warm, dry with normal turgor. Normal color with no rashes, no lesions, and no evidence of cellulitis. MS/ Extremity: Pulses equal, no cyanosis. Neurovascular intact. Full, normal range of motion. Neuro: Awake and alert, GCS 15, oriented to person, place, time, and situation. Cranial nerves II-XII grossly intact. Motor strength 5/5 in all extremities. Sensory grossly intact. Cerebellar exam normal. Normal gait. Psych: Awake, alert, with orientation to person, place and time. Behavior, mood, and affect are within normal limits. 14:03 ECG was reviewed by the Attending Physician. 14:03 Abdomen/GI: Inspection: abdomen appears normal, Bowel sounds: normal, Palpation: mild abdominal tenderness, in the right upper quadrant, Vital Signs: 11:51 BP 138 / 97; Pulse 83; Resp 18; Temp 98.9; Pulse Ox 100% ; Weight 100.7 kg; Height 5 ll1 ft. 8 in. ; Pain 10/10; 14:03 BP 190 / 116; Pulse 75; Resp 15; MAP 136 mmHg; Pain 5/10; tm6 15:12 BP 177 / 107; MAP 124 mmHg; tm6 11:51 Body Mass Index 33.75 (100.70 kg, 172.72 cm) ll1 11:51 Pain Scale: Adult ll1 14:03 Pain Scale: Adult tm6 MDM: 11:41 Medical Screening Exam initiated maurice 14:06 Differential diagnosis: Nonspecific abd pain, gastritis, cholecystitis, pancreatitis, maurice appendicitis, diverticulitis, viral gastroenteritis, gastroenteritis. Data reviewed: vital signs, nurses notes, lab test result(s). Consideration of Admission/Observation Patient was admitted/placed on observation. Escalation of care including admission/observation considered. I considered the following discharge prescriptions or medication management in the emergency department Medications were administered in the Emergency Department. See MAR. Independent interpretation of the following test(s) in the Emergency Department EKG: See my EKG interpretation above. Test considered but Not performed: MRI: no mrcp. Historians other than the Patient: Spouse/Significant Other: well informed. Care significantly affected by the following chronic conditions: Hypertension, Obesity. 05/02 11:44 Order name: Basic Metabolic Panel; Complete Time: 13:39 maurice 05/02 11:44 Order name: CBC with Diff; Complete Time: 13:39 05/02 11:44 Order name: LFT's; Complete Time: 13:39 05/02 11:44 Order name: Magnesium; Complete Time: 13:39 05/02 11:44 Order name: NT PRO-BNP; Complete Time: 13:39 05/02 11:44 Order name: PT-INR; Complete Time: 13:39 05/02 11:44 Order name: Troponin HS; Complete Time: 13:39 05/02 11:44 Order name: Lipase; Complete Time: 13:39 05/02 13:40 Order name: Urinalysis w/ reflexes; Complete Time: 14:48 [facility] 05/02 13:40 Order name: Urine Culture [facility] 05/02 15:23 Order name: Urinalysis w/ reflexes [facility] 05/02 15:23 Order name: CBC with Automated Diff [facility] 05/02 15:23 Order name: CBC with Automated Diff [facility] 05/02 15:23 Order name: Comprehensive Metabolic Panel [facility] 05/02 15:23 Order name: Comprehensive Metabolic Panel [facility] 05/02 15:23 Order name: Magnesium [facility] 05/02 15:23 Order name: Magnesium [facility] 05/02 11:44 Order name: XRAY Chest (1 view); Complete Time: 13:39 [facility] 05/02 11:44 Order name: CT Abd/Pelvis - IV Contrast Only; Complete Time: 13:59 [facility] 05/02 13:46 Order name: US Abdomen Limited; Complete Time: 14:48 [facility] 05/02 15:20 Order name: CONS Physician Consult [facility] 05/02 11:44 Order name: Cardiac monitoring; Complete Time: 12:25 [facility] 05/02 11:44 Order name: EKG - Nurse/Tech; Complete Time: 12:25 [facility] 05/02 11:44 Order name: IV Saline Lock; Complete Time: 12:05 [facility] 05/02 11:44 Order name: Labs collected and sent; Complete Time: 12:06 [facility] 05/02 11:44 Order name: O2 Per Protocol; Complete Time: 12:25 [facility] 05/02 11:44 Order name: O2 Sat Monitoring; Complete Time: 12:25 [facility] EC:03 Rate is 81 beats/min. Rhythm is regular. QRS [place] is Normal. OR interval is normal. QRS maurice interval is normal. QT interval is normal. No Q waves. T waves are Normal. No ST changes noted. Clinical impression: NSR w/ Non-specific ST/T Changes and No evidence of ischemia. Interpreted by me. Reviewed by me. Administered Medications: 12:16 Drug: NS 0.9% IV 1000 ml IV at 1000 ml once; to be given as a bolus over 60 minutes tm6 Route: IV; Rate: 1000 ml; Site: right antecubital; 14:07 Follow up: Response: No adverse reaction; IV Status: Completed infusion; IV Intake: tm6 1000ml 12:16 Drug: Ondansetron IVP 4 mg IVP once; over 2 minutes Route: IVP; Site: right antecubital;tm6 14:07 Follow up: Response: No adverse reaction tm6 12:16 Drug: Famotidine IVP 20 mg IVP once; dilute with 10 mL 0.9% NaCl; give over 2 minutes tm6 Route: IVP; Site: right antecubital; 14:07 Follow up: Response: No adverse reaction tm6 12:16 Drug: morphine IVP or IV 2 mg IVP once over 4 mins Route: IVP; Infused Over: 4 mins; tm6 Site: right antecubital; 14:07 Follow up: Response: No adverse reaction tm6 14:07 Not Given (Patient Refused): morphineor iv 2 mg IVP once over 4 mins tm6 14:13 Not Given (Patient Refused): fentanyl (pf)25 mcg IVP once tm6 14:40 Drug: Piperacillin-Tazobactam IVPB 3.375 grams IVPB once over 60 mins; (mix in NS 100 tm6 mL) Route: IVPB; Infused Over: 60 mins; Site: right antecubital; 15:12 Follow up: Response: No adverse reaction; IV Status: Completed infusion; IV Intake: tm6 100ml 14:40 Drug: Promethazine IVP 12.5 mg IVP once Route: IVP; Site: right antecubital; tm6 15:12 Follow up: Response: No adverse reaction tm6 14:46 Drug: traMADol PO 50 mg PO once Route: PO; tm6 15:12 Follow up: Response: No adverse reaction tm6 Disposition Summary: 05/02/24 14:12 Hospitalization Ordered Notes: Hospitalization Status: Observation maurice Provider: Eric Turner cha Location: Telemetry/MedSurg (Inpatient) maurice Condition: Stable maurice Problem: new maurice Symptoms: have improved maurice Bed/Room Type: Standard maurice Room Assignment: 223(05/02/24 15:33) eb Diagnosis - Cholecystitis, unspecified maurice - Acute cholecystitis maurice - Other cholelithiasis with obstruction maurice - Epigastric abdominal tenderness maurice - Vomiting maurice - Essential (primary) hypertension maurice Forms: - Medication Reconciliation Form maurice - SBAR form maurice - Leadership Thank You Letter maurice Signatures: Dispatcher [employer] Oskar Abraham MD MD cha Botello, Elizabeth eb Lewis, Lynsay, RN RN ll1 Marek Peguero, RN RN tm6 Corrections: (The following items were deleted from the chart) 11:45 11:45 BASIC METABOLIC PANEL+C.LAB.BRZ ordered. EDMS EDMS 11:45 11:45 CBC+H.LAB.BRZ ordered. EDMS EDMS 11:45 11:45 HEPATIC FUNCTION+C.LAB.BRZ ordered. EDMS EDMS 11:45 11:45 MAGNESIUM+C.LAB.BRZ ordered. EDMS EDMS 11:45 11:45 PROBNP+C.LAB.BRZ ordered. EDMS EDMS 11:45 11:45 PROTIME (+INR)+COAG.LAB.BRZ ordered. EDMS EDMS 11:45 11:45 Troponin High Sensitivity+C.LAB.BRZ ordered. EDMS EDMS 11:45 11:45 LIPASE+C.LAB.BRZ ordered. EDMS EDMS 11:45 11:45 Chest Single View+RAD.RAD.BRZ ordered. EDMS EDMS 11:45 11:45 Abdomen Pelvis W Con+CT.RAD.BRZ ordered. EDMS EDMS 13:40 13:40 Urinalysis+U.LAB.BRZ ordered. EDMS EDMS 13:40 13:40 Urine Culture+BA.LAB.BRZ ordered. EDMS EDMS 15:33 14:12 maurice eb
[2024-05-02] MEDS ORDERED: PROMETHAZINE INJ 25 MG/ML AMP ONE (14:19)
[2024-05-02] MEDS ORDERED: NA CHLORIDE 0.9% 100 ML ONE ×2 (14:19→15:14)
[2024-05-02] MEDS ORDERED: PIPERACIL/TAZO 3.375 GM VIAL IV ONE (14:19)
--- NOTE | 2024-05-02 14:22 | RAD REPORT ---
Abdomen Exam Limited: 05/02/2024 2:08 PM CLINICAL HISTORY: ABD PAIN STUDY: Limited right upper quadrant ultrasound of abdomen. COMPARISON: Same day CT FINDINGS: Liver: No significant abnormality. Bile ducts: Mild extra hepatic biliary duct dilatation. . Common bile duct measures [address], it measured approximately 6 mm. Gallbladder: Distended gallbladder. There are stones present in the region of the gallbladder neck. T he gallbladder is distended. The wall is mildly thickened. IMPRESSION: Cholelithiasis with distended gallbladder and mild gallbladder wall thickening could represent mild o r early acute cholecystitis. Note that the common bile duct measures 7 mm ([address]) which is mild dilated.
[2024-05-02 14:23] LABS: Specific Gravity 1.012 (1.005-1.030); Sqamous Epithelial <5 /HPF (None Seen); Urine Bacteria None Seen /HPF (<20); Urine Bilirubin NEGATIVE (Negative); Urine Blood Negative (Negative); Urine Clarity Clear (Clear); Urine Color Colorless (Yellow); Urine Culture Reflex Order NOT NEEDED; Urine Glucose 3+ (Negative); Urine Ketones NEGATIVE (Negative); Urine Microscopic Reflex YN ORDER UMIC; Urine Mucus Slight /HPF (None Seen); Urine Nitrite NEGATIVE (Negative); Urine Protein NEGATIVE (Negative); Urine RBC None Seen /HPF (None Seen); Urine Urobilinogen Normal (Normal); Urine WBC None Seen /HPF (<5); Urine pH 7.5 (5.0-7.0)
[2024-05-02] MEDS ORDERED: TRAMADOL HCL 50 MG TAB ONE (14:43)
--- NOTE | 2024-05-02 15:16 | P.HP ---
Certification for Inpatient Patient admitted to: Inpatient With expected LOS: <2 Midnights <Afsaneh Peña - Last Filed: 05/02/24 16:55> Patient History Date of Service: 05/02/24 Reason for admission: acute cholecystitis History of Present Illness: s 58 yrs old Black Female with past medical history of HTN, TIA, presents to emergency room with abominal pain. She reports symptoms started 0400. She repor ts epigastric and RUQ tenderness with reported associated nausea. She reports symptoms worse with po intake. She denies chest pain, shortness of breath, ETOH use, or fever. Plan to admit to [facility] for Cholecystitis, unspecified, - Acute cholecystitis, Other cholelithiasis with obstruction, Epigastric abdominal tenderness with surgery to consult. ER evaluation. Distended gallbladder with trace pericholecystic stranding. This could reflect acute cholecystitis in the appropriate clinical setting. Consider right upper quadrant ultrasound. ABD US Cholelithiasis with distended gallbladder and mild gallbladder wall thickening could represent mild or early acute cholecystitis. Note that the common bile duct measures 7 mm ([address]) which ismild dilated. EKG Rate is 81 beats/min. Rhythm is regular. QRS [place] is Normal. AR interval is normal. QRS interval is normal. QT interval is normal. No Q waves. T waves are Normal. No ST changes noted. Clinical impression: NSR w/ Non-specific ST/T Changes and No evidence of ischemia, UA + glucosuria, - Past Medical/Surgical History -: HTN -: TIA - Social History Smoking Status: Never smoker Alcohol use: No CD- Drugs: No Caffeine use: Yes Place of Residence: Home <Afsaneh Peña - Last Filed: 05/02/24 16:55> Date of Service: 05/02/24 <Eric Turner - Last Filed: 05/02/24 18:05> Allergies aspirin Allergy (Unknown, Verified 05/02/24 17:41) unknown Review of Systems 10-point ROS is otherwise unremarkable General: As per HPI <Afsaneh Peña - Last Filed: 05/02/24 16:55> Physical Examination - Physical Exam General: Alert, In no apparent distress, Oriented x3 HEENT: Atraumatic, Normocephalic Neck: Supple, JVD not distended Respiratory: Clear to auscultation bilaterally, Normal air movement Cardiovascular: Normal pulses, Regular rate/rhythm, Normal S1 S2 Capillary refill: <2 Seconds Gastrointestinal: Other (epigastric, RUQ, lower abdominal ) Musculoskeletal: No clubbing, No swelling Integumentary: No breakdown, No significant lesion Neurological: Normal speech, Normal strength at 5/5 x4 extr - Studies Laboratory Data (last 24 hrs) 05/02/24 05/02/24 05/02/24 12:07 12:07 12:07 WBC 7.40 Hgb 13.7 Hct 42.7 Plt Count 241 PT 11.5 INR 1.03 Sodium 136 Potassium 3.6 BUN 16 Creatinine 1.12 H Glucose 140 H Magnesium 1.8 Total Bilirubin 0.4 AST 14 L ALT 21 Alkaline Phosphatase 111 Lipase 21 <Afsaneh Peña - Last Filed: 05/02/24 16:55> - Studies Laboratory Data (last 24 hrs) 05/02/24 05/02/24 05/02/24 12:07 12:07 12:07 WBC 7.40 Hgb 13.7 Hct 42.7 Plt Count 241 PT 11.5 INR 1.03 Sodium 136 Potassium 3.6 BUN 16 Creatinine 1.12 H Glucose 140 H Magnesium 1.8 Total Bilirubin 0.4 AST 14 L ALT 21 Alkaline Phosphatase 111 Lipase 21 <Eric Turner - Last Filed: 05/02/24 18:05> Assessment and Plan - Problems (Diagnosis) (1) Acute cholecystitis Current Visit: Yes Status: Acute (2) Cholelithiasis with obstruction Current Visit: Yes Status: Acute Qualifiers: Cholecystitis presence: with cholecystitis (3) Epigastric abdominal pain Current Visit: Yes Status: Acute (4) Hypertension Current Visit: Yes Status: Acute (5) Glucosuria Current Visit: Yes Status: Acute - Plan admit to Med surg Surgery to consult PRN analgesics, antiemetics, IV antibiotics, PPI A1C in am resume home anti hypertensives Obesity, recommend calorie restricted diet Full Code Diet NPI DVT SCD Discharge Plan: Home - Advance Directives Does patient have a Living Will: No Does patient have a Durable POA for Healthcare: No - Code Status/Comfort Care Code Status: Full Code Critical Care: No Time Spent Managing Pts Care (In Minutes): 55 <Afsaneh Peña - Last Filed: 05/02/24 16:55> Date of Service: 05/02/24 Patient was seen and examined. Events of the last 24 hours have been noted. Spoke with with ANNITA regarding patient's clinical picture after evaluating and examining the patient independently. I performed a substantial part of the MDM during this patient's care today. I personally made or approved the documented management plan and acknowledge its risk of complications. I agree with the findings and documentation provided in the ANNITA's notes. Further gallbladder workup pending at this time. Waiting for general surgery consultation. N.p.o. after midnight for possible laparoscopic cholecystectomy <Eric Turner - Last Filed: 05/02/24 18:05>
[2024-05-02] MEDS ORDERED: ONDANSETRON 4 MG/2 ML VIAL IV PRN (15:19)
[2024-05-02] MEDS ORDERED: MORPHINE 4 MG/ML SYR IV PRN (15:21)
[2024-05-02] MEDS ORDERED: NA CHLORIDE 0.9% 1,000 ML IV SCH (16:00)
[2024-05-02 17:19] VITALS: BMI 37.0
[2024-05-02] MEDS: ONDANSETRON 4 MG/2 ML VIAL IV PRN (17:50)
[2024-05-02] MEDS: HYDROMORPHONE HCL 0.5 MG/0.5 ML INJ IV PRN (17:50)
[2024-05-02] MEDS: NA CHLORIDE 0.9% 1,000 ML IV SCH (21:41)
--- NOTE | 2024-05-02 23:47 | CON ---
Date of Consultation: 05/02/2024 Reason For Service: Acute cholecystitis, symptomatic cholelithiasis. History Of Present Illness: This is a case of a 58-year-old patient who comes to us with a history o f epigastric right upper quadrant pain associated with nausea. It was to the point that she could no t eat anymore. She did not improve, so she came to the ER. During the ER stay, patient was diagnose d with acute cholecystitis, Lyons sign positive, cholelithiasis, and a surgical consult was obtained . She denies any recent traveling out of the country, denies any family members sick at home. She h as been at the [facility] a day before eating some sausage and steak. Past Medical History: Hypertension, TIA many years ago, not on any anticoagulation, no residual neur o deficit. Social History: She does not smoke. She does not drink alcohol. Past Surgical History: Tubal ligation. Allergies: ASPIRIN. Review of Systems: No shortness of breath. No chest pain. No fever. Has nausea, bloating, and abdominal pain. No dys uria, hematuria, hematochezia, melena. No recent traveling out of the country. 10 points are otherw ise unremarkable. Physical Examination: Vital Signs: Reviewed. The patient is awake, alert. HEENT: Pupils are equal and reactive. Anicteric. Neck: Supple. Chest: Clear. Heart: S1, S2. Abdomen: Epigastric right upper quadrant pain with Lyons sign positive. Pelvis/Breasts/Rectal: Deferred. Extremities: Good capillary refill. Laboratory Data: Blood work shows WBC count of 7.4 with hemoglobin of 13.7, platelets of 241. INR i s 1.03. Potassium 3.6. Total bilirubin of 0.4. Ultrasound shows cholelithiasis with distended gall bladder and gallbladder wall thickening consistent with cholecystitis. CAT scan of the abdomen and p ketty shows distended gallbladder with trace pericholecystic fluid. Assessment: This is a 58-year-old patient with acute cholecystitis, symptomatic cholelithiasis. Nor mal LFTs. The benefits, alternatives, and risks of laparoscopic, possible open cholecystectomy was f ully explained, which include, but not limited to infection, bleeding, damage to adjacent structures, anesthesia complication, choledocholithiasis, bile leak, pancreatitis, MD, and even . She also understands this may not relieve any symptoms. She might need more than one surgical intervention. The patient was started on antibiotics, will be kept n.p.o., and proceed with surgery. HM/MODL Voice ID: [id number] Report ID: [id number]
[2024-05-03] MEDS: FLU (Fluarix Triv) TS24-25(6MOS UP)/PF 45 MCG/0.5 ML Syringe IM ONE (08:01)
[2024-05-03 08:11] LABS: Absolute Basophils 0.1 K/uL (0-0.5); Absolute Lymphocytes (CBC) 2.4 K/uL (0.7-4.9); Absolute Monocytes 0.8 K/uL (0.1-1.3); Absolute Neutrophil 5.8 K/uL (1.8-8.0); Basophils % 0.8 % (0-1.3); Eosinophils % 0.4 % (0-4.4); Hematocrit 41.3 % (36.0-45.0); Hemoglobin 13.5 g/dL (12.0-15.0); Lymphocytes % 26.2 % (15.3-44.8); MCH 26.4 pg (27.0-35.0); MCHC 32.6 g/dL (32.0-36.0); MCV 81.1 fL (80-100); MPV 8.3 fL (7.6-11.3); Monocytes % 9.1 % (3.3-12.3); Neutrophils % 63.5 % (41.7-73.7); Nucleated Red Blood Cells % 0.1 % (0-0); Platelets 250 thou/uL (152-406); RBC Red Blood Cell Count 5.09 M/uL (3.86-4.86); Red Cell Distribution Width 15.3 % (12.1-15.2)
[2024-05-03] MEDS: AMLODIPINE 10 MG TAB PO SCH (08:11)
[2024-05-03] MEDS: FAMOTIDINE 20 MG/2 ML VIAL IV SCH (08:12)
[2024-05-03 08:28] LABS: Albumin 3.3 g/dL (3.4-5.0); Albumin/Globulin Ratio 0.8 (1.1-1.8); Anion Gap 9.4 mEq/L (5.0-15.0); Bilirubin Total 0.6 mg/dL (0.2-1.0); Globulin 4.3 g/dL (2.3-3.5); Potassium 3.4 mEq/L (3.5-5.1); Protein, Total 7.6 g/dL (6.4-8.2)
[2024-05-03] MEDS ORDERED: KETOROLAC 30 MG/ML INJ ONE (10:41)
[2024-05-03] MEDS ORDERED: dexAMETHasone 10 MG/ML VIAL ONE (10:41)
[2024-05-03] MEDS ORDERED: ONDANSETRON 4 MG/2 ML VIAL ONE (10:41)
[2024-05-03] MEDS ORDERED: MIDAZOLAM HCL 2 MG/2 ML INJ ONE (10:42)
[2024-05-03] MEDS ORDERED: FENTANYL CITR 100 MCG/2 ML ONE (10:42)
[2024-05-03] MEDS ORDERED: LIDOCAINE 2% MPF 5 ML VIAL ONE (10:42)
[2024-05-03] MEDS ORDERED: propofoL 200 MG/20 ML VIAL IV ONE (10:42)
[2024-05-03] MEDS ORDERED: ROCURONIUM 50 MG/5 ML VIAL IV ONE (10:42)
--- NOTE | 2024-05-03 11:09 | P.PN ---
Subjective Date of Service: 05/03/24 Chief Complaint: acute cholecystitis Subjective: No new changes (awaiting OR at 1100, discussed post op risks and TEDS, IS. Pt voices understanding) Review of Systems 10-point ROS is otherwise unremarkable General: Unremarkable Eyes: Unremarkable ENT: Unremarkable Respiratory: Unremarkable Cardiovascular: Unremarkable Gastrointestinal: As per HPI Genitourinary: Unremarkable Musculoskeletal: Unremarkable Integumentary: Unremarkable Neurological: Unremarkable Lymphatics: Unremarkable Physical Examination - Vital Signs Temperature: 97.5 F Blood Pressure: 150/70 Pulse: 67 Respirations: 16 Pulse Ox (%): 94 - Physical Exam General: Alert, In no apparent distress, Oriented x3 HEENT: Atraumatic, Normocephalic Neck: Supple Respiratory: Normal air movement Cardiovascular: Regular rate/rhythm Capillary refill: <2 Seconds Gastrointestinal: Hypoactive, Other (just medicated prior to assessment) Musculoskeletal: No clubbing, No swelling Integumentary: No rashes Neurological: Normal speech, Normal tone, Normal affect Lymphatics: No axilla or inguinal lymphadenopathy External genitalia: Deferred Rectal: Deferred - Studies Laboratory Data (last 24 hrs) 05/02/24 05/02/24 05/02/24 12:07 12:07 12:07 WBC 7.40 Hgb 13.7 Hct 42.7 Plt Count 241 PT 11.5 INR 1.03 Sodium 136 Potassium 3.6 BUN 16 Creatinine 1.12 H Glucose 140 H Magnesium 1.8 Total Bilirubin 0.4 AST 14 L ALT 21 Alkaline Phosphatase 111 Lipase 21 Assessment And Plan - Plan Assessment and Plan - Problems (Diagnosis) (1) Acute cholecystitis Current Visit: Yes Status: Acute (2) Cholelithiasis with obstruction Current Visit: Yes Status: Acute Qualifiers: Cholecystitis presence: with cholecystitis (3) Epigastric abdominal pain Current Visit: Yes Status: Acute (4) Hypertension Current Visit: Yes Status: Acute (5) Glucosuria Current Visit: Yes Status: Acute - Plan admit to Med surg Surgery to consult PRN analgesics, antiemetics, IV antibiotics, PPI A1C in am resume home anti hypertensives Obesity, recommend calorie restricted diet Full Code Diet NPI DVT SCD Discharge Plan: Home - Advance Directives Does patient have a Living Will: No Does patient have a Durable POA for Healthcare: No
--- NOTE | 2024-05-03 12:08 | P.BOP ---
Preoperative diagnosis: Acute cholecystitis, symptomatic cholelithiasis Postoperative diagnosis: same Primary procedure: Laparoscopic cholecystectomy Estimated blood loss: <10cc Specimen: gb Findings: as above Anesthesia: General Complications: None Transferred to: Recovery Room Condition: Good
[2024-05-03 12:22] VITALS: O2SAT 96
--- NOTE | 2024-05-03 12:53 | OP ---
Date of Procedure: 05/03/2024 Surgeon: Darrin Hicks MD Preoperative Diagnoses: Acute abdominal pain, acute cholecystitis, symptomatic cholelithiasis. Postoperative Diagnoses: Acute abdominal pain, acute cholecystitis, symptomatic cholelithiasis. Procedure: Laparoscopic cholecystectomy. Estimated Blood Loss: Less than 10 cc. Specimen: Gallbladder. Findings: Inflamed gallbladder. Complications: None. Anesthesia: General plus local. Indication: This patient is a 58-year-old patient who was admitted to the hospital with acute abdomi nal pain, diagnosed with symptomatic cholelithiasis, acute cholecystitis. The benefits, alternatives , and risks of laparoscopic possible open cholecystectomy fully explained, which include, but not nunez ited to, infection, bleeding, damage to adjacent structures, anesthesia complication, choledocholithi asis, bile leak, pancreatitis, CO, and even . She also understands this may not relieve any sym ptoms. She might need more than one surgical intervention. She understood, signed a consent. Description Of Procedure: The patient was brought to the operating room, placed in supine position. Anesthesia was induced without complication. Abdominal area was prepped and draped in the usual carlos rile fashion. Local anesthesia was applied followed by sharp incision of the skin in the supraumbili seth region. Incision was carried down to fascia, which was opened under direct vision. Peritoneum w as encountered, opened under direct vision. Vicryl #1 placed inside of the fascia. Gloria trocar wa s carefully introduced. Pneumoperitoneum was obtained. I placed 3 more trocars, 5 mm each one of th em, 1 in the epigastric area, 2 in the right upper quadrant under direct visualization. This allowed me to see an inflamed and distended gallbladder. It was so tense that I had to use the Endo needle to deflate the gallbladder partially under direct visualization. Needle was removed under direct vis ualization. Grasper was placed in the gallbladder and then after that, I put another grasper in the infundibulum, retracting the gallbladder in the inferolateral fashion exposing the triangle of Calot, and obtaining critical view. Cystic duct and cystic artery were clearly isolated, freed circumferen tially, and the connection between those and the gallbladder were clearly identified. I proceeded to ligate those by using at least 3 clips proximal, 1 clip distal, ligation in the middle. Same was do ne with the cystic artery. No bile leak. No bleeding. The gallbladder was removed from the liver u sing Bovie cauterizer and removed from the abdominal cavity using EndoCatch through the umbilical inc ision. Area was inspected once again. No bile leak. No bleeding. At that moment, I proceeded to r emove the trocars under direct vision, deflated pneumoperitoneum, closed the fascia with #1 Vicryl, i rrigated subcutaneous tissue, closed that with 3-0 chromic, and the skin with seun. Sponge counts and instrument counts correct. Patient tolerated the procedure well. Patient was sent to Recovery in stable condition. BING/CHRIS Voice ID: [id number] Report ID: [id number]
[2024-05-03] MEDS: POTASSIUM CL SA 10 MEQ TAB PO ONE ×2 (17:03→23:06)
[2024-05-04 08:33] VITALS: BP 140/66; TEMP 98.4
--- NOTE | 2024-05-04 10:58 | P.PN ---
Subjective Date of Service: 05/04/24 Chief Complaint: acute cholecystitis Subjective: Tolerating diet, Ambulating, Improving Review of Systems ENT: Unremarkable Respiratory: Unremarkable Cardiovascular: Unremarkable Gastrointestinal: Nausea (no), Vomiting (no), No Distention Genitourinary: Unremarkable Physical Examination - Vital Signs Temperature: 98.4 F Blood Pressure: 140/66 Pulse: 77 Respirations: 18 Pulse Ox (%): 95 - Physical Exam General: Alert, In no apparent distress, Oriented x3, Cooperative HEENT: PERRLA, EOMI Respiratory: Normal air movement Cardiovascular: No edema Gastrointestinal: Soft and benign Integumentary: No erythema, No warmth, No cyanosis Neurological: Normal speech - Studies Microbiology Data (last 24 hrs): 05/02/24 14:05 Clean Catch Urine [place] Count - Final <10,000 CFU/ML. 05/02/24 14:05 Clean Catch Urine - Final MIXED RADHA. Assessment And Plan - Plan F/u my office next friday No heavy lifting May take shower with dressing off tomorrow and then cover seun with triple antibiotic ointment and bandaid
--- NOTE | 2024-05-04 12:57 | EKG ---
Test Date: 2024-05-02 Test Time: 12:21:19 Driver Supervisor: MELIA MEASUREMENT RESULTS: Intervals: Rate: 81 GA: 168 QRSD: 84 QT: 376 QTc: 436 [place]: P: 52 GA: 168 QRS: 28 T: -38 INTERPRETIVE STATEMENTS: Normal sinus rhythm Nonspecific T wave abnormality Abnormal ECG Compared to ECG 08/06/2023 09:35:16 No significant changes Electronically Signed On 05-04-24 12:51:17 CDT by Tano Baker
--- NOTE | 2024-05-05 19:24 | P.DS ---
Admission Date: 05/03/24 Discharge Date: 05/04/24 Disposition: ROUTINE DISCHARGE Discharge Condition: GOOD Reason for Admission: acute cholecystitis Consultations: Dr. Hicks Procedures: Laparoscopic cholecystectomy Brief History of Present Illness: Ms. Reece is a 58 yrs old Black Female with past medical history of HTN, TIA, presents to emergency room with abominal pain. She reports symptoms started 0400. She reports epigastric and RUQ tenderness with reported associated nausea. She reports symptoms worse with po intake. She denies chest pain, shortness of breath, ETOH use, or fever. Plan to admit to med/surg for Cholecystitis, unspecified, - Acute cholecystitis, Other cholelithiasis with obstruction, Epigastric abdominal tenderness with surgery to consult. ER evaluation. Distended gallbladder with trace pericholecystic stranding. This could reflect acute cholecystitis in the appropriate clinical setting. Consider right upper quadrant ultrasound. ABD US Cholelithiasis with distended gallbladder and mild gallbladder wall thickening could represent mild or early acute cholecystitis. Note that the common bile duct measures 7 mm ([address]) which is mild dilated. EKG Rate is 81 beats/min. Rhythm is regular. QRS [place] is Normal. MI interval is normal. QRS interval is normal. QT interval is normal. No Q waves. T waves are Normal. No ST changes noted. Clinical impression: NSR w/ Non-specific ST/T Changes and No evidence of ischemia, UA + glucosuria Hospital Course: On05/03/2024 Ms. Reece underwent a laparoscopic cholecystectomy. Her gallbladder was so inflamed it was necessary to decompress it prior to removal. She was observed overnight, was passing gas, was taking p.o. slowly, and was cleared by Dr. Hicks. She will follow-up with him in 1 week in his office for staple removal but may take her dressing off tomorrow and shower, dry her seun, and place antibiotic ointment and recover the area. Vital Signs/Physical Exam: Temp Pulse Resp BP Pulse Ox 98.4 F 77 18 140/66 95 05/04/24 10:58 05/04/24 10:58 05/04/24 10:58 05/04/24 10:58 05/04/24 10:58 General: Alert, In no apparent distress, Oriented x3 HEENT: Atraumatic, Normocephalic Neck: Supple Respiratory: Clear to auscultation bilaterally, Normal air movement Cardiovascular: Normal pulses, Regular rate/rhythm, Normal S1 S2 Capillary refill: <2 Seconds Gastrointestinal: Soft and benign, Other (seun covered with dry, intact dressing) Musculoskeletal: No clubbing, No swelling Integumentary: No rashes Neurological: Normal speech, Normal tone, Normal affect Lymphatics: No axilla or inguinal lymphadenopathy External genitalia: Deferred Rectal: Deferred Laboratory Data at Discharge: WBC 9.10 thou/uL (4.3-10.9) 05/03/24 07:20 Hgb 13.5 g/dL (12.0-15.0) 05/03/24 07:20 Hct 41.3 % (36.0-45.0) 05/03/24 07:20 Plt Count 250 thou/uL (152-406) 05/03/24 07:20 PT 11.5 SECONDS (9.4-12.5) 05/02/24 12:07 INR 1.03 05/02/24 12:07 Sodium 139 mEq/L (136-145) 05/03/24 07:20 Potassium 3.7 mEq/L (3.5-5.1) 05/04/24 07:41 BUN 12 mg/dL (7-18) 05/03/24 07:20 Creatinine 1.06 mg/dL (0.55-1.02) H 05/03/24 07:20 Glucose 151 mg/dL (74-106) H 05/03/24 07:20 Magnesium 2.0 mg/dL (1.6-2.4) 05/03/24 07:20 Total Bilirubin 0.6 mg/dL (0.2-1.0) 05/03/24 07:20 AST 11 U/L (15-37) L 05/03/24 07:20 ALT 16 U/L (13-56) 05/03/24 07:20 Alkaline Phosphatase 101 U/L (45-117) 05/03/24 07:20 Lipase 21 U/L (13-75) 05/02/24 12:07 Home Medications: Amlodipine [Norvasc*] 10 mg PO DAILY 05/02/24 Amox/Clavulanate [Augmentin 875-125 Tab] 875 mg PO BID #10 tab 05/04/24 Hydrocodone 7.5/APAP 325 [[place] 7.5/325 mg] 1 tab PO Q6H PRN #20 tab 05/04/24 New Medications: Amox/Clavulanate [Augmentin 875-125 Tab] 875 mg PO BID #10 tab Hydrocodone 7.5/APAP 325 [[place] 7.5/325 mg] 1 tab PO Q6H PRN #20 tab PRN Reason: Pain Physician Discharge Instructions: Discharge OK TO DC IV AND DC HOME FOLLOW-UP WITH PRIMARY CARE PROVIDER IN 1-2 WEEKS FOLLOW-UP WITH Surgery IN 1 WEEK RETURN TO THE ER IF symptoms worsens CALL DR. LARA AT [phone] IF ANY QUESTIONS REGARDING HOSPITAL STAY. PLEASE CALL THE FLOOR AT [phone] IF ANY MEDICATION OR NURSING QUESTIONS. F/u my surgical office next friday call for appt [phone] No heavy lifting May take shower with dressing off tomorrow and then cover seun with triple antibiotic ointment and bandaid Diet: Low sodium Activity: Fall precautions Followup: Darrin Hicks MD [ACTIVE - CAN ADMIT] - 1-2 Weeks NimcoOTREEMA [Primary Care Provider] -
== END 2024-05-04 10:54 | disposition home or self-care (01) | DRG 419 ==
LOC: ER 11:36 → ERHOLD 15:17 → 2ND 16:22 → OBSVTOIN 05-03 17:57
PROVIDERS: ADMIT Hospitalist; ATTEND Hospitalist
PROC: 0FT44ZZ Resection of Gallbladder, Percutaneous Endoscopic Approach (ICD-10-PCS; principal; 2024-05-03 12:00)
DX: K80.01 Calculus of gallbladder with acute cholecystitis with obstruction (principal); I10 Essential (primary) hypertension; Z88.6 Allergy status to analgesic agent; Z68.37 Body mass index [BMI] 37.0-37.9, adult; Z86.73 Personal history of transient ischemic attack (TIA), and cerebral infarction without residual deficits
CPT/HCPCS: 36415; 71045; 74177; 76705; 80048; 80053; 80076; 81001; 82947; 83036; 83690; 83735; 83880; 84132; 84484; 85025; 85610; 87086; 87088; 88304; 93005; 94010; 96361; 96365; 96375; 99285; G0378; J1100; J1170; J2003; J2250; J2270; J2405; J2543; J2550; J2704; J3010; J7030; Q9967

== ENCOUNTER 2024-05-15 11:20 | Emergency (ER) | payer OTHER ==
--- NOTE | 2024-05-15 11:31 | ER ---
Nurse's Notes [facility] Name: Vanessa Reece Age: 58 yrs Sex: Female : 1965 Arrival Date: 05/15/2024 Time: 11:20 Bed IW1 Private MD: Diagnosis: Cellulitis of abdominal wall Presentation: 05/15 11:28 Chief complaint: Patient states: had seun removed s/p cholecystectomy on the , iw they left two seun in [address]. Coronavirus screen: At this time, the client does not indicate any symptoms associated with coronavirus-19. Ebola Screen: No symptoms or risks identified at this time. Initial Sepsis Screen: Does the patient meet any 2 criteria? No. Patient's initial sepsis screen is negative. Does the patient have a suspected source of infection? No. Patient's initial sepsis screen is negative. Risk Assessment: Do you want to hurt yourself or someone else? Patient reports no desire to harm self or others. Onset of symptoms was May 03, 2024. 11:28 Method Of Arrival: Ambulatory iw 11:28 Acuity: LISANDRO 4 iw Triage Assessment: 11:35 General: Appears in no apparent distress. Behavior is calm, cooperative. iw Historical: - Allergies: 11:29 Aspirin; iw - PMHx: 11:29 Hypertensive disorder; no meds now; TIA; iw - Immunization history:: Adult Immunizations up to date. - Infectious Disease History:: Denies. - Social history:: Smoking status: Patient denies any tobacco usage or history of. Screenin:50 [facility] ED Fall Risk Assessment (Adult) History of falling in the last 3 months, iw including since admission No falls in past 3 months (0 pts) Confusion or Disorientation No (0 pts) Intoxicated or Sedated No (0 pts) Impaired Gait No (0 pts) Mobility Assist Device Used No (0 pt) Altered Elimination No (0 pt) Score/Fall Risk Level 0 - 2 = Low Risk. Abuse screen: Denies threats or abuse. Denies injuries from another. Nutritional screening: No deficits noted. Tuberculosis screening: No symptoms or risk factors identified. Assessment: 11:35 General: Appears in no apparent distress. Behavior is calm, cooperative. Pain: Denies iw pain. Neuro: Level of Consciousness is awake, alert, obeys commands, Oriented to person, place, time, situation, Moves all extremities. Full function. Cardiovascular: Patient's skin is warm and dry. Respiratory: Respiratory effort is even, unlabored, Respiratory pattern is regular. Derm: Skin is pink, warm \T\ dry. normal. Vital Signs: 11:30 BP 138 / 88; Pulse 67; Resp 16; Pulse Ox 99% ; Weight 99.79 kg; Height 5 ft. 9 in. ; iw 11:30 Body Mass Index 32.49 (99.79 kg, 175.26 cm) iw ED Course: 11:22 Patient arrived in ED. ra3 11:23 Nnamdi Haynes MD is Attending Physician. ec2 11:29 Triage completed. iw 11:30 Arm band placed on. iw 11:55 No provider procedures requiring assistance completed. Patient did not have IV access iw during this emergency room visit. 11:56 Dorothea Griffith RN is Primary Nurse. iw Administered Medications: 11:56 Drug: Trimethoprim-Sulfamethoxazole PO (160 mg-800 mg (DS) 1 tablet PO once Route: PO; iw 11:56 Follow up: Response: Medication administered at discharge. iw Medication: 11:55 VIS not applicable for this client. iw Outcome: 11:30 Discharge ordered by . ec2 11:55 Discharged to home ambulatory, iw 11:55 Condition: good 11:55 Discharge instructions given to patient, 11:56 Patient left the ED. iw Signatures: Dorothea Griffith RN RN iw Nnamdi Haynes MD MD ec2 Emili Maldonado ra3 Corrections: (The following items were deleted from the chart) 11:31 11:30 Pulse 67bpm; Resp 16bpm; Pulse Ox 99%; 99.79 kg; Height 5 ft. 9 in.; BMI: 32.4; iwiw
--- NOTE | 2024-05-15 11:31 | EDPHYS ---
Physician Documentation [facility] Name: Vanessa Reece Age: 58 yrs Sex: Female : 1965 Arrival Date: 05/15/2024 Time: : Bed IW1 Private MD: ED Physician Nnamdi Haynes HPI: 05/15 11:30 This 58 yrs old Black Female presents to ER via Ambulatory with complaints of Suture ec2 Removal. 11:30 Patient arrives today for evaluation of her seun. Reports that she has seun in ec2 place from recent cholecystectomy approximately 1.5 weeks ago. Is having some discomfort at the area. Has had some redness as well. No fevers or chills, nausea or vomiting.. Historical: - Allergies: 11: Aspirin; iw - PMHx: 11:29 Hypertensive disorder; no meds now; TIA; iw - Immunization history:: Adult Immunizations up to date. - Infectious Disease History:: Denies. - Social history:: Smoking status: Patient denies any tobacco usage or history of. ROS: 11:33 Constitutional: as per hpi ec2 Exam: 11:33 Constitutional: GEN: NAD Head: atraumatic Eyes: EOMI Ears: External ears are ec2 normal. CV: regular rate LUNGS: no respiratory distress ABD: non-distended SKIN: [address] in the upper abdomen with surrounding erythema, no fluctuance MSK: no evidence of trauma Vital Signs: 11:30 BP 138 / 88; Pulse 67; Resp 16; Pulse Ox 99% ; Weight 99.79 kg; Height 5 ft. 9 in. ; iw 11:30 Body Mass Index 32.49 (99.79 kg, 175.26 cm) iw MDM: 11:23 Medical Screening Exam initiated ec2 11:33 Data reviewed: vital signs. ED course: Patient arrives today for evaluation of skin ec2 concerns. Examination remarkable for [address] with surrounding cellulitis. Restart the patient antibiotics have the patient follow-up with general surgery to have her seun removed. Return precautions given. I considered obtaining lab work however patient is hemodynamically stable without systemic signs and symptoms. Additionally considered other process such as underlying abscess however patient with no fluctuance. Will forego advanced imaging such as CT abdomen pelvis. Will discharge home. Return precautions given.. Administered Medications: 11:56 Drug: Trimethoprim-Sulfamethoxazole PO (160 mg-800 mg (DS) 1 tablet PO once Route: PO; 11:56 Follow up: Response: Medication administered at discharge. Disposition Summary: 05/15/24 11:30 Discharge Ordered Notes: Location: Home ec2 Condition: Stable ec2 Diagnosis - Cellulitis of abdominal wall ec2 Followup: ec2 - With: Private Physician - When: - Reason: Re-evaluation by your physician Discharge Instructions: - Discharge Summary Sheet ec2 - Cellulitis, Adult ec2 Forms: - Medication Reconciliation Form ec2 - Antibiotic Education ec2 - Prescription Opioid Use ec2 - Patient Portal Instructions ec2 - Leadership Thank You Letter ec2 Prescriptions: - Bactrim DS 800-160 mg Oral Tablet - take 1 tablet ORAL route every 12 hours for 7 days; 14 tablet; Refills: 0, ec2 Product Selection Permitted Signatures: Dorothea Griffith RN RN iw Nnamdi Haynes MD MD ec2
[2024-05-15] MEDS ORDERED: SMZ./TMP. 800/160 MG TABLET ONE (11:50)
== END 2024-05-15 11:56 | disposition home or self-care (01) ==
LOC: ER 11:20
DX: L03.311 Cellulitis of abdominal wall (principal)
CPT/HCPCS: 99283